=== PATIENT | male | born 1945 | race Caucasian/White ===

== ENCOUNTER 2016-07-09 22:08 | Emergency (ER) | payer MEDICARE, MEDICAID ==
[2016-07-09 22:21] VITALS: TEMP 98.2; BMI 23.6
[2016-07-09 22:59] LABS: LEUKOCYTES/URINE NEG (NEGATIVE); NITRITE/URINE NEG (NEGATIVE); RBC/URINE 0-2 (0-2); URINE OCCULT BLOOD NEG (NEG/TRACE); WBC/URINE 0-2 (0-2)
[2016-07-09 23:21] LABS: AUTOMATED BASOPHIL 1.3 % (0-2); AUTOMATED EOSINOPHIL 5.9 % (0-5); AUTOMATED LYMPH 32.3 % (17-44); AUTOMATED MONOCYTE 7.7 % (3-10); AUTOMATED NEUTROPHIL 52.8 % (45-76); MPV 8.1 fL (7.4-10.4)
[2016-07-09 23:30] LABS: CALC CORRECTED 9.6 MG/DL (8.4-10.2); CALCIUM 9.3 MG/DL (8.4-10.2); CREATININE 1.4 MG/DL (0.66-1.25); TOTAL PROTEIN 7.2 G/DL (6.3-8.2)
--- NOTE | 2016-07-09 23:33 | EDPRACDOC ---
- General Information Chief Complaint: Altered Mental Status Stated Complaint: AMS Time Seen by Provider: 07/09/16 22:33 Information Source: Patient, Import Clerk - History of Present Illness Onset: few days HPI: HERE FROM [facility] FOR [facility]ICKING STAFF. HERE PT IS QUIET AND ANSWERS ALL QUESTIONS APPROPRIATELY. VERY COOPERATIVE. 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 (Medication/ CBG 247 per EMS SWITCHBOX ASSEMBLER Dose/Time) EMS Treatment BLS IV No ED Past Medical History - History Reviewed Yes Nurses notes reviewed and agree except as marked - Patient Medical History Neurological History: Reports: Dementia Cardiac History: Reports: Hypertension Psychological History: Denies: Depression Systemic 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) - Social Medical History Smoking Status: Never smoker EDM Review of Systems - Review of Systems ROS Negative Except as Marked: Yes All systems reviewed and were negative except as marked - Physical Exam Constitutional: Alert (Awake), No apparent distress Oriented to: Time, Person, Place Last recorded Vital Signs: Last Vital Signs Temp 98.2 F 07/09/16 22:16 Pulse 87 07/09/16 22:16 Resp 20 07/09/16 22:16 BP 143/83 07/09/16 22:16 Pulse Ox 96 07/09/16 22:16 Oxygen Pulse Oxygen Saturation 96 O2 Device Room Air Oxygen Flow Rate Fraction of Inspired Oxygen ( FIO2) - HEENT Head: Normal ( normocephalic) Eye Exam: Normal (PERRL, EOMI, Sclera white) Oropharynx: Normal (Pharynx:Moist without exudate,Gums-no swelling) ENT EAC: Normal TMJ: Normal Nose: No Symptoms Reported (septum midline) Neck: Normal (FROM, trachea at midline) - Respiratory/Cardiovascular Respiratory: Normal - CTA (BBS clear to auscultation without adventitious sounds ) Cardiovascular: Normal (RRR without murmur, gallop or rub) - GI Auscultation: Normal (NABS) Palpation: Normal (Soft,No rebound or guarding, non distended) Tenderness: Non tender Shabazz's Sign: Negative - Musculoskeletal Back: Normal (Non-Tender) Extremities: Normal (Normal tone, Pulses 2+ No cyanosis or edema, FROM) - Integumentary Skin: Normal, Warm, Dry Lymphatics: Normal (no adenopathy) - Neurologic Memory Impaired: Normal Motor Function: Normal (Normal tone, Pulses 2+ No cyanosis or edema, FROM) Cranial Nerve: Normal (CN II-X11 intact sensation, strength 5/5) Cerebellar: Normal Mood Description: Normal Perception: Normal - Results 07/09/16 23:11 07/09/16 23:11 WBC 6.8 xk/uL (3.8-10.8) 07/09/16 23:11 RBC 4.25 xM/uL (4.70-6.10) L 07/09/16 23:11 Hgb 13.3 g/dL (14.0-18.0) L 07/09/16 23:11 Hct 39.5 % (42-52) L 07/09/16 23:11 MCV 93 fL (80-94) 07/09/16 23:11 MCH 31.4 pg (27-32) 07/09/16 23:11 MCHC 33.8 g/dl (33-36) 07/09/16 23:11 RDW 14.2 % (11.5-14.5) 07/09/16 23:11 Plt Count 173 xk/uL (130-400) 07/09/16 23:11 MPV 8.1 fL (7.4-10.4) 07/09/16 23:11 Neut % (Auto) 52.8 % (45-76) 07/09/16 23:11 Lymph % (Auto) 32.3 % (17-44) 07/09/16 23:11 [place] % (Auto) 7.7 % (3-10) 07/09/16 23:11 Eos % (Auto) 5.9 % (0-5) H 07/09/16 23:11 Baso % (Auto) 1.3 % (0-2) 07/09/16 23:11 Absolute Neuts (auto) 3.54 xk/uL (1.7-8.2) 07/09/16 23:11 Absolute Lymphs (auto) 2.18 xk/uL (0.65-4.75) 07/09/16 23:11 Urine Color Yellow 07/09/16 22:22 Urine Clarity Clear 07/09/16 22:22 Urine pH 6.0 (5.0-8.0) 07/09/16 22:22 Ur Specific [place] 1.015 (1.003-1.035) 07/09/16 22:22 Urine Protein 1+ (NEG/TRACE) H 07/09/16 22:22 Urine Glucose (UA) 2+ (NEGATIVE) 07/09/16 22:22 Urine Ketones Neg (NEGATIVE) 07/09/16 22:22 Urine Occult Blood Neg (NEG/TRACE) 07/09/16 22:22 Urine Nitrite Neg (NEGATIVE) 07/09/16 22:22 Urine Bilirubin Neg (NEGATIVE) 07/09/16 22:22 Urine Urobilinogen <2.0 MG/DL (0-1) 07/09/16 22:22 Ur Leukocyte Esterase Neg (NEGATIVE) 07/09/16 22:22 Urine RBC 0-2 (0-2) 07/09/16 22:22 Urine WBC 0-2 (0-2) 07/09/16 22:22 Urine Mucus Occ (NEG/OCC) 07/09/16 22:22 Lab Results 07/09/16 07/09/16 23:11 22:22 WBC 6.8 RBC 4.25 L Hgb 13.3 L Hct 39.5 L MCV 93 MCH 31.4 MCHC 33.8 RDW 14.2 Plt Count 173 MPV 8.1 Neut % (Auto) 52.8 Lymph % (Auto) 32.3 [place] % (Auto) 7.7 Eos % (Auto) 5.9 H Baso % (Auto) 1.3 Absolute Neuts (auto) 3.54 Absolute Lymphs (auto) 2.18 Urine Color Yellow Urine Clarity Clear Urine pH 6.0 Ur Specific [place] 1.015 Urine Protein 1+ H Urine Glucose (UA) 2+ Urine Ketones Neg Urine Occult Blood Neg Urine Nitrite Neg Urine Bilirubin Neg Urine Urobilinogen <2.0 Ur Leukocyte Esterase Neg Urine RBC 0-2 Urine WBC 0-2 Urine Mucus Occ Decision Time to Discharge: 23:32 - Departure Yes I personally saw and evaluated the patient. Disposition: Home Condition: Good Final Diagnosis: AGITATION-RESOLVED Education/Counseling Given To: Patient Education/Counseling Given Regarding: Diagnosis, Treatment, Prognosis Additional Instructions: CONTACT PMD TOMORROW TO REVIEW MEDS
[2016-07-10 09:25] VITALS: BP 162/74; PULSE 71
== END 2016-07-10 09:20 | disposition home or self-care (01) ==
LOC: ED 22:08
DX: R45.1 Restlessness and agitation (principal); F03.90 Unspecified dementia, unspecified severity, without behavioral disturbance, psychotic disturbance, mood disturbance, and anxiety; I10 Essential (primary) hypertension; E11.9 Type 2 diabetes mellitus without complications; M79.672 Pain in left foot; M79.671 Pain in right foot; G89.29 Other chronic pain
CPT/HCPCS: 36415; 80053; 81001; 85025; 99284